=== PATIENT | female | born 1960 | race Caucasian/White ===

== ENCOUNTER → 2020-12-04 13:41 | Outpatient (CLI) | payer OTHER, SELFPAY ==
--- NOTE | ~2020-12-04 | MM_ITS ---
EXAMINATION: MM screening sara BI w raj HISTORY: Screening mammogram TECHNIQUE: Craniocaudal and mediolateral oblique 3-D tomosynthesis images were obtained and synthetic 2-D images were generated. CAD analysis was submitted and interpreted. COMPARISON: 11/16/2019, 10/20/2017, 09/21/2016 bilateral digital screening mammogram examinations BREAST PARENCHYMAL COMPOSITION: There are scattered areas of fibroglandular density. FINDINGS: Scattered bilateral benign calcifications. There is no evidence of suspicious mass, calcifi cation, or architectural distortion to suggest malignancy in either breast. There has been no suspici ous interval change. IMPRESSION: 1. No mammographic evidence of malignancy. 2. Recommend routine screening mammography in one year. BI-RADS Category 1: Negative Reviewed, dictated and finalized at location A. [place] SHELLER
== END ==
PROVIDERS: Visit Provider Obstetrics & Gynecology Gynecology
DX: Z12.31 Encounter for screening mammogram for malignant neoplasm of breast (principal)
CPT/HCPCS: 77063; 77067

== ENCOUNTER → 2021-12-27 07:51 | Outpatient (CLI) | payer OTHER, SELFPAY ==
--- NOTE | ~2021-12-27 | DEXA_ITS ---
Bone Density Report Name: NIKO MINA Age: 61 Sex: Female Ethnicity: White Date of : 1960 Indication: osteopenia; monitoring treatment; parental hip fracture; hysterectomy; postmenopausal Referring Provider: VILMA VICTORIA Study: Bone densitometry was performed. Exam Date: December 27, 2021 Accession number: [id number] Bone Density: Region BMD T-score Z-score Classification AP Spine (L1-L4) 0.823 -2.0 -0.6 Osteopenia Femoral Neck (Left) 0.756 -0.8 0.4 Normal Total Hip (Left) 0.812 -1.1 -0.1 Osteopenia Femoral Neck (Right) 0.769 -0.7 0.6 Normal Total Hip (Right) 0.840 -0.8 0.1 Normal Total Hip Mean 0.826 -1.0 0.0 Normal World Health Organization criteria for BMD impression classify patients as: Normal (T-score at or above -1.0), Osteopenia (T-score between -1.0 and -2.5), or Osteoporosis (T-score at or below -2.5). 10-year Fracture Risk: FRAX not reported because: Treated for osteoporosis Previous Exams: Region Exam Age BMD T-score BMD Change BMD Change Date g/cm2 vs Baseline vs Previous AP Spine(L1-L4) 12/27/2021 61 0.823 -2.0 -0.013 0.021 11/16/2019 59 0.802 -2.2 -0.034* -0.047* 10/20/2017 57 0.849 -1.8 0.013 0.013 09/19/2015 55 0.836 -1.9 Total Hip(Left) 12/27/2021 61 0.812 -1.1 0.030* 0.031* 11/16/2019 59 0.781 -1.3 -0.001 -0.034* 10/20/2017 57 0.815 -1.0 0.033* 0.033* 09/19/2015 55 0.782 -1.3 Total Hip(Right) 12/27/2021 61 0.840 -0.8 0.023 0.039* 11/16/2019 59 0.801 -1.2 -0.017 -0.027 10/20/2017 57 0.828 -0.9 0.010 0.010 09/19/2015 55 0.818 -1.0 *Denotes significance at 95% confidence level, LSC for AP Spine = 0.022 g/cm2, LSC for Total Hip = 0.027 g/cm2 Clinical Information Provided by Patient: Parent has had a hip fracture Is being treated for osteoporosis Has used the following medications: Boniva (i.e. ibandronate), Vitamin D Has the following medical conditions: Hysterectomy, thyroid med, unsure condition Patient maximum height was 60 Menopause Age: 46 Drinks caffeinated beverages Onset of menses at age 13 Number of children 2 Impression: The patient has low bone mass, based on the Total Spine T-score. The patient has risk factors, including: parental hip fracture. No significant bone loss was
--- NOTE | ~2021-12-27 | MM_ITS ---
EXAMINATION: MM screening sara BI w raj HISTORY: Screening mammogram TECHNIQUE: Craniocaudal and mediolateral oblique 3-D tomosynthesis images were obtained and synthetic 2-D images were generated. CAD analysis was submitted and interpreted. COMPARISON: 12/04/2020, 11/16/2019 BREAST PARENCHYMAL COMPOSITION: The breasts are heterogeneously dense, which may obscure small masses . FINDINGS: Scattered benign-appearing calcifications are present. There is no evidence of suspicious m ass, calcification, or architectural distortion to suggest malignancy in either breast. There has bee n no suspicious interval change. IMPRESSION: 1. No mammographic evidence of malignancy. 2. Recommend routine screening mammography in one year. BI-RADS Category 2: Benign finding(s). Reviewed, dictated and finalized at location A. ETICIST
== END ==
PROVIDERS: PCP Obstetrics & Gynecology Gynecology; Visit Provider Obstetrics & Gynecology Gynecology
DX: Z12.31 Encounter for screening mammogram for malignant neoplasm of breast (principal); Z78.0 Asymptomatic menopausal state; M85.88 Other specified disorders of bone density and structure, other site; M85.852 Other specified disorders of bone density and structure, left thigh
CPT/HCPCS: 77063; 77067; 77080

== ENCOUNTER → 2023-05-31 13:51 | Outpatient (CLI) | payer OTHER, SELFPAY ==
--- NOTE | ~2023-05-31 | XR_ITS ---
EXAM: XR sinus min 3V DATE: 05/31/2023 14:07 HISTORY: R51.9 - Headache, unspecified . COMPARISON: None available. FINDINGS: Normal mineralization. No fracture or dislocation. No lytic or blastic lesion. No abnormal intracranial calcification. Symmetric orbits. Aerated spaces are clear. Mild leftward bowing of the inferior osseous nasal septum. Multiple dental restorations. No erosion or periosteal change. Soft ti ssues within normal limits. IMPRESSION: Normal sinus radiograph findings. Reviewed, dictated and finalized at location K.
== END ==
PROVIDERS: PCP Nurse Practitioner Family; Visit Provider Nurse Practitioner Family
DX: R40.0 Somnolence (principal); R51.9 Headache, unspecified; G89.29 Other chronic pain
CPT/HCPCS: 70220

== ENCOUNTER 2023-06-18 08:49 | Emergency (ER) | payer OTHER, SELFPAY ==
--- NOTE | 2023-06-18 09:01 | ED.GENADULT ---
HPI - General Adult General Chief complaint: Skin/Abscess/Foreign Body Stated complaint: rash around eyes Time Seen by Provider: 06/18/23 09:03 Source: patient, RN notes reviewed and old records reviewed Mode of arrival: ambulatory Limitations: no limitations History of Present Illness HPI narrative: 63-year-old female presents to the [facility] with a rash to the outer aspects of both eyes. Patient reports the right eye it has been there for approximately 4 weeks. Left eye states it has just developed. Denies any new creams ointments lotions or detergents. Has seen her eye doctor as well as her primary care provider with no diagnosis. Related Data Home Medications Medication Instructions Recorded Confirmed ibandronate 150 mg tablet (Boniva) 150 mg PO MONTHLY 07/25/20 06/18/23 levothyroxine 75 mcg tablet 88 mcg PO DAILY 11/03/21 06/18/23 (Synthroid) meloxicam 7.5 mg tablet 7.5 mg PO DAILY 11/03/21 06/18/23 sertraline 50 mg tablet (Zoloft) 50 mg PO DAILY 05/11/22 06/18/23 biotin 2,500 mcg capsule 2,500 mcg PO DAILY 05/31/23 06/18/23 fluticasone propionate 50 2 spray intranasal DAILY 05/31/23 06/18/23 mcg/actuation nasal spray,suspension multivitamin 1 tablet PO DAILY 05/31/23 06/18/23 Allergies Allergy/AdvReac Type Severity Reaction Status Date / Time No Known Allergies Allergy Verified 06/18/23 09:12 Review of Systems Review of Systems: All systems reviewed & are unremarkable except as noted in HPI and below Constitutional: Constitutional: Reports no additional constitutional complaints Eyes: Eyes: Reports no additional eye complaints ENT: Reports system reviewed and no additional complaints, except as documented Cardiovascular: Cardiovascular: Reports no additional cardiovascular complaints, Denies chest pain and Denies dyspnea Respiratory: Respiratory: Reports no additional respiratory complaints, Denies chest congestion, Denies cough and Denies dyspnea Gastrointestinal: Gastrointestinal: Reports no additional gastrointestinal complaints, Denies abdominal pain, Denies nausea and Denies vomiting Musculoskeletal: Musculoskeletal: Reports no additional musculoskeletal complaints Integumentary/Breasts: Skin/Breast: Reports as per HPI Neurologic: Reports system reviewed and no additional complaints, except as documented Psychiatric: Psychiatric: Reports no additional psychiatric complaints Allergic/Immunologic: Allergic/Immunologic: Reports no additional allergic/immunologic complaints [facility] Past Medical History Medical History Cutaneous abscess of buttock (~2019) Generalized anxiety disorder Hypothyroidism (acquired) Incomplete tear of right rotator cuff Osteopenia of spine Screening cholesterol level Shingles (~09/2021) Vitamin B12 deficiency Surgical History Surgical History History of carpal tunnel surgery of right wrist (~01/13/22) Hx of hysterectomy (~2005) Family History Family History Mother Family history of thyroid disease Family history of osteoporosis Father Diabetes mellitus Hypertension Cerebrovascular accident Grandparent Acute myocardial infarction Family history of dementia Social History Social History Smoking status: Never smoker Alcohol intake: never Substance use: never Substance use type: does not use Lack of Transportation: No Lack of Food: Never True Current Housing: I Have Housing Concerned About Future Housing: No Difficulty Paying Gas/Electric Bills: No Difficulty Paying for Meds: No Currently Unemployed: No Education: High School Diploma/GED Difficulty w/ Childcare or Family Care: No Living arrangements: with family Occupation/Education: occupation Comments At the time of my signature, I reviewed
[2023-06-18 09:04] VITALS: BP 145/88; PULSE 84; RESP 16; TEMP 36.4; O2SAT 99
== END 2023-06-18 09:17 | disposition home or self-care (01) ==
PROVIDERS: Emergency Provider Nurse Practitioner; PCP Nurse Practitioner Family
DX: L30.9 Dermatitis, unspecified (principal); E03.9 Hypothyroidism, unspecified; M85.88 Other specified disorders of bone density and structure, other site; F41.1 Generalized anxiety disorder; E53.8 Deficiency of other specified B group vitamins
CPT/HCPCS: 99211; G0463

== ENCOUNTER 2023-07-16 08:03 | Outpatient (CLI) | payer OTHER, SELFPAY ==
--- NOTE | 2023-08-02 10:39 | WPDHOMESLEEP ---
Sleep Study - Home Unattended Date of Study: 07/16/23 Ordering Provider: Laury Wilkinson APRN Interpreting Provider: Paola Morse MD Home Sleep Study Type: Watch PAT Height: 1.5 m Weight: 53.524 kg Body Mass Index: 23.8 Neck Circumference (inches): 13 [place]: 7 Reason for Sleep Study Hypersomnia Sleep History Natasha Uribe is a 63-year-old woman with constant fatigue after waking up even after 8-10 hours of sleep. She snores loudly, she has a dry mouth in the morning and headaches. She has a difficult time falling asleep and staying asleep. She wakes in the milieu technician hours. She has seen her dentist about these problems. She rarely awakens from sleep short of breath. She occasionally wakes at night with heartburn, belching or coughing.??She sleeps alone, has heard herself snoring. She constantly has trouble sleeping when she has a cold. She rarely wakes up gasping for breath during the night. She never has breathing problems at night. She rarely sweats excessively at night. She never notices her heart pounding or beating irregularly during the night. She rarely falls asleep during the day. She never falls asleep involuntarily, and never falls asleep while driving. She never experiences loss of muscle tone with strong emotion. She never feels paralyzed on waking or falling asleep. She rarely experiences vivid dreams upon waking or falling asleep. She never feels afraid of going to sleep. She rarely has nightmares. She rarely recalls her dreams. She occasionally has thoughts racing through her mind. She occasionally feels sad or depressed. She occasionally feels anxiety. She rarely notices parts of her body jerk. She rarely kicks during the night. She never feels crawling or aching feelings in her legs. She rarely feels leg pain at night. She rarely has morning jaw pain. Her dentitst tells her that she has evidence of grinding her teeth during sleep. She rarely feels bothered by pain during the day, rarely awakened by pain during the night. She occasionally wakes up feeling stiff in the morning, occasionally wakes feeling sore or achy in the morning. She frequently awakens with pain in her neck, spine, or joints. Normal bedtime is 9:00 a.m., falling asleep within 10 minutes. She reports getting 8 hours of sleep per night. Her wake time is 6:00 a.m. She keeps the same schedule on weekends. she generally does not wake up much at night, usually less than once per week. Once she wakes up at night, it is usually difficult for her to return to sleep so she stays awake. She does not take naps in the afternoon or evening. She sometimes does stretching exercises before bedtime. She is usually drowsy for 2 hours after waking. She feels better in the morning compared to other times of day. Habits:??Tobacco: never Caffeine: 3 servings per day. Alcohol: none Recreational substances: none PMFSH Past Medical History Medical History Cutaneous abscess of buttock (~2019) Generalized anxiety disorder Hypothyroidism (acquired) Incomplete tear of right rotator cuff Osteopenia of spine Screening cholesterol level Shingles (~09/2021) Vitamin B12 deficiency Surgical History Surgical History History of carpal tunnel surgery of right wrist (~01/13/22) Hx of hysterectomy (~2005) Family History Family History Mother Family history of thyroid disease Family history of osteoporosis Father Diabetes mellitus Hypertension Cerebrovascular accident Grandparent Acute myocardial infarction Family history of dementia Social History Social History Smoking status: Never smoker Alcohol intake: never Substance use: never Substance use type: does not use Lack of Transportation: No Lack of Fo
[2023-08-02 11:39] VITALS: BMI 23.8
== END 2023-07-20 09:38 | disposition home or self-care (01) ==
PROVIDERS: PCP Nurse Practitioner Family; Visit Provider Nurse Practitioner Family
DX: R40.0 Somnolence (principal); R06.83 Snoring
CPT/HCPCS: 95800

== ENCOUNTER 2024-05-03 11:33 | Outpatient (CLI) | payer OTHER, SELFPAY ==
--- NOTE | ~2024-05-03 | DEXA_ITS ---
? Bone Density Report? Name:? NIKO MINA A Patient ID:??? [id number] Age:? 64 Sex:? Female Ethnicity:? White Date of : 1960 Indication: hyperparathyroidism; parental hip fracture; height loss; hysterectomy; Referring Provider: Tracie Atkinson Study: Bone densitometry was performed. Exam Date: May 03, 2024 Accession number: [id number] Bone Density: Region? BMD??? T-score ?Z-score?? Classification AP Spine(L1-L4)? 0.842?? -1.9? -0.3? Osteopenia Femoral Neck (Left)? 0.768?? -0.7? 0.7? Normal Total Hip (Left)? 0.809?? -1.1?0.0? Osteopenia Femoral Neck (Right)? 0.751?? -0.9? 0.5? Normal Total Hip (Right)? 0.853?? -0.7? 0.3? Normal Femoral Neck Mean? 0.759?? -0.8? 0.6? Normal Total Hip Mean? 0.831?? -0.9? 0.2?Normal World Health Organization criteria for BMD impression classify patients as: Normal (T-score at or above -1.0), Osteopenia (T-score between -1.0 and -2.5), or Osteoporosis (T-score at or below -2.5). 10-year Fracture Risk(1): Major Osteoporotic Fracture? 15% Hip Fracture? 0.4% Reported Risk Factors: [place] (), Neck BMD=0.751, BMI=25.2, parental fracture (1) FRAX? Version 3.08. Fracture probability calculated for an untreated patient. Fracture probability may be lower if the patient has received treatment. Clinical Information Provided by Patient: Parent has had a hip fracture Has the following medical conditions: Hyperparathyroidism, Hysterectomy Patient maximum height was 60 Menopause Age: 47 Drinks caffeinated beverages Onset of menses at age 14 Number of children 2 Impression: The patient has low bone mass, based on the Total Spine T-score. The patient has risk factors, including: parental hip fracture. Discussion: BONE DENSITY IS LOW AT ONE OR MORE SKELETAL SITES. This patient's lowest T-score is low at one or more skeletal sites.? It meets the World Health Organization's (WHO) criteria for ?low bone mass?? (T-score between -1.0 and -2.5).? The patient's 10-year risk of fracture as calculated by FRAX is less than the threshold where pharmacological therapy is recommended by the National Osteoporosis Foundation (NOF).? However, all treatment decisions require clinical judgment and consideration of individual patient factors, including patient preferences, comorbidities, previous drug use, risk factors not captured in the FRAX model (e.g., frailty, falls, vitamin D deficiency, increased bone turnover, interval significant decline in bone density) and possible under or overestimation of fracture risk by FRAX. The patient should follow a healthful lifestyle (good nutrition
--- NOTE | ~2024-05-03 | MM_ITS ---
EXAMINATION: MM screening [facility] BI w raj HISTORY: Screening mammogram TECHNIQUE: Craniocaudal and mediolateral oblique 3-D tomosynthesis images were obtained and synthetic 2-D images were generated. CAD analysis was submitted and interpreted. COMPARISON: 12/27/2021, 12/04/2020, 11/16/2019 BREAST PARENCHYMAL COMPOSITION:Not Dense. There are scattered areas of fibroglandular density. FINDINGS: No suspicious mass, calcification, or architectural distortion are identified in either siri ast to suggest malignancy. There has been no suspicious interval change. IMPRESSION: No mammographic evidence of malignancy. Recommend routine screening mammography in one year. BI-RADS Category 1: Negative Reviewed, dictated and finalized at location .
== END 2024-05-03 11:34 | disposition home or self-care (01) ==
LOC: CHSIMG 11:35
PROVIDERS: PCP Obstetrics & Gynecology Gynecology; Visit Provider Obstetrics & Gynecology Gynecology
DX: Z12.31 Encounter for screening mammogram for malignant neoplasm of breast (principal); Z78.0 Asymptomatic menopausal state; M85.88 Other specified disorders of bone density and structure, other site
CPT/HCPCS: 77063; 77067; 77080

== ENCOUNTER 2024-05-10 01:27 | Day surgery (SDC) | payer OTHER, SELFPAY ==
[2024-04-27 10:16] VITALS: BMI 25.3
[2024-05-10 11:41] VITALS: BP 123/65; PULSE 102; RESP 18; TEMP 36.3; O2SAT 100; BMI 23.9
[2024-05-10] MEDS: LACTATED RINGERS 1,000 ML 150 ML IV CONT (11:49)
--- NOTE | 2024-05-10 11:53 | WPDANESEPPF ---
Anes - Initial Pre Proc Eval Procedure: Operation Date: 05/10/24 13:00 Proposed Procedures p Colonoscopy - Jasvir Robert MD Date/Time: 05/10/24 11:53 Surgeon: Jasvir Robert MD Pre Op Diagnosis: Other fecal abnormalities Patient Data Age: 64 Gender: F Height: 1.5 m Weight: 53.8 kg Last Vital Signs Temp 97.3 F L 05/10/24 11:41 Pulse 102 H 05/10/24 11:41 Resp 18 05/10/24 11:41 BP 123/65 05/10/24 11:41 Pulse Ox 100 05/10/24 11:41 O2 Del Method Room Air 05/10/24 11:41 Allergies Allergy/AdvReac Type Severity Reaction Status Date / Time No Known Allergies Allergy Verified 05/10/24 11:38 Home Medications Medication Instructions Recorded Confirmed Type ibandronate 150 mg tablet (Boniva) 150 mg PO MONTHLY 07/25/20 05/10/24 History levothyroxine 75 mcg tablet 88 mcg PO DAILY 11/03/21 05/10/24 History (Synthroid) meloxicam 7.5 mg tablet 7.5 mg PO DAILY 11/03/21 05/10/24 History sertraline 50 mg tablet (Zoloft) 50 mg PO DAILY 05/11/22 05/10/24 History fluticasone propionate 50 2 spray intranasal DAILY 05/31/23 05/10/24 History mcg/actuation nasal spray,suspension multivitamin 1 tablet PO DAILY 05/31/23 05/10/24 History zolpidem 10 mg tablet (Ambien) 10 mg PO QHS PRN sleep #2 tabs 05/05/24 05/10/24 Rx Patient hx anesthesia problems: none Family hx anesthesia problems: none Results Review: All pre-operative results and documents have been reviewed as part of the pre-operative evaluation. [facility] Past Medical History Medical History Cutaneous abscess of buttock (~2019) Generalized anxiety disorder Hypothyroidism (acquired) Incomplete tear of right rotator cuff Osteopenia of spine Screening cholesterol level Shingles (~09/2021) Vitamin B12 deficiency Surgical History Surgical History History of carpal tunnel surgery of right wrist (~01/13/22) Hx of hysterectomy (~2005) Family History Family History Mother Family history of thyroid disease Family history of osteoporosis Father Diabetes mellitus Hypertension Cerebrovascular accident Grandparent Acute myocardial infarction Family history of dementia Social History Social History Smoking status: Never smoker Alcohol intake: never Substance use: never Substance use type: does not use Lack of Transportation: No Lack of Food: Never True Current Housing: I Have Housing Concerned About Future Housing: No Difficulty Paying Gas/Electric Bills: No Difficulty Paying for Meds: No Currently Unemployed: No Education: High School Diploma/GED Difficulty w/ Childcare or Family Care: No Living arrangements: with family Occupation/Education: occupation Spiritual care concerns: No Anes - Eval Final PreProcedure Day of Procedure 05/10/24 11:53 Patient weight: normal Heart: regular rate and rhythm Lungs: clear to auscultation Airway: Mallampati scale class II Neurological: alert and oriented Last oral intake: >/= 8 hours ASA classification: II Emergent: no Anesthetic plan: proceed Anesthesia type and monitoring: general GIVS and standard monitoring Results Review: All pre-operative results and documents have been reviewed as part of the pre-operative evaluation. Informed Consent: The patient's anesthetic plan and its attendant risks and benefits were discussed with the patient/family/POA. Questions were solicited and answers provided to the satisfaction of the patient/family/POA.
--- NOTE | 2024-05-10 13:15 | PM.HPGS ---
History of Present Illness History of Present Illness Consent: Risks, benefits, and alternatives have been discussed and questions answered. Patient agrees to proceed with procedure. Chief complaint: Other fecal abnormalities Narrative: Natasha Uribe is a 64 year old female with + cologuard, last colonoscopy 12 years ago Review of Systems Review of Systems: All systems reviewed & are unremarkable except as noted in HPI and below PMFSH Past Medical History Medical History (Updated 05/10/24 @ 13:16 by Jasvir Robert MD) Cutaneous abscess of buttock (~2019) Generalized anxiety disorder Hypothyroidism (acquired) Incomplete tear of right rotator cuff Osteopenia of spine Positive colorectal cancer screening using Cologuard test Screening cholesterol level Shingles (~09/2021) Vitamin B12 deficiency Surgical History Surgical History History of carpal tunnel surgery of right wrist (~01/13/22) Hx of hysterectomy (~2005) Family History Family History Mother Family history of thyroid disease Family history of osteoporosis Father Diabetes mellitus Hypertension Cerebrovascular accident Grandparent Acute myocardial infarction Family history of dementia Social History Social History Smoking status: Never smoker Alcohol intake: never Substance use: never Substance use type: does not use Lack of Transportation: No Lack of Food: Never True Current Housing: I Have Housing Concerned About Future Housing: No Difficulty Paying Gas/Electric Bills: No Difficulty Paying for Meds: No Currently Unemployed: No Education: High School Diploma/GED Difficulty w/ Childcare or Family Care: No Living arrangements: with family Occupation/Education: occupation Spiritual care concerns: No Meds Home Medications and Allergies Home Medications Medication Instructions Recorded Confirmed Type ibandronate 150 mg tablet (Boniva) 150 mg PO MONTHLY 07/25/20 05/10/24 History levothyroxine 75 mcg tablet 88 mcg PO DAILY 11/03/21 05/10/24 History (Synthroid) meloxicam 7.5 mg tablet 7.5 mg PO DAILY 11/03/21 05/10/24 History sertraline 50 mg tablet (Zoloft) 50 mg PO DAILY 05/11/22 05/10/24 History fluticasone propionate 50 2 spray intranasal DAILY 05/31/23 05/10/24 History mcg/actuation nasal spray,suspension multivitamin 1 tablet PO DAILY 05/31/23 05/10/24 History zolpidem 10 mg tablet (Ambien) 10 mg PO QHS PRN sleep #2 tabs 05/05/24 05/10/24 Rx Allergies Allergy/AdvReac Type Severity Reaction Status Date / Time No Known Allergies Allergy Verified 05/10/24 11:38 Vital Signs Vital Signs - 24 hr 05/10/24 11:41 Temperature 97.3 F L Pulse Rate 102 H Respiratory Rate 18 Blood Pressure 123/65 Pulse Oximetry 100 Oxygen Delivery Room Air Exam Const: General: comfortable and no acute distress HENMT: Face/Nose/Sinus: Normal nares present Eyes: General: appearance normal, both eyes and all related structures Neck: Neck: no JVD Resp: Auscultation: clear to auscultation bilaterally Cardio: Rate: regular rate Rhythm: regular rhythm GI: Inspection: non-distended GI Palp: Yes Soft to palpation Skin: General skin exam: normal color Neuro: General: gait normal Speech: normal speech Extrem: General: normal to inspection Psych: Mental Status: mental status grossly normal Assessment and Plan Assessment and plan (1) Positive colorectal cancer screening using Cologuard test: Code(s): R19.5 - Other fecal abnormalities Status: Acute Assessment and Plan: colonoscopy
[2024-05-10 13:39] VITALS: BP 93/51; PULSE 88; RESP 19; O2SAT 99
[2024-05-10 13:49] VITALS: BP 109/64; PULSE 90; RESP 18; O2SAT 99
[2024-05-10 13:59] VITALS: BP 104/61; PULSE 79; RESP 19; O2SAT 100
== END 2024-05-10 14:07 | disposition home or self-care (01) ==
PROVIDERS: PCP Family Medicine; Visit Provider Internal Medicine Gastroenterology
PROC: 0DJD8ZZ Inspection of Lower Intestinal Tract, Via Natural or Artificial Opening Endoscopic (ICD-10-PCS; CPT 45378; principal; 2024-05-10 13:00)
DX: K63.5 Polyp of colon (principal); K57.30 Diverticulosis of large intestine without perforation or abscess without bleeding; K64.8 Other hemorrhoids; E03.9 Hypothyroidism, unspecified; F41.1 Generalized anxiety disorder
CPT/HCPCS: 45380; 88305; J2704; J7120

== ENCOUNTER 2024-05-11 08:58 | Outpatient (CLI) | payer OTHER, SELFPAY ==
--- NOTE | 2024-05-23 17:36 | WPDSLEEPSTUD ---
Sleep Study Date of Study: 05/11/24 Ordering Provider: TOBIAS Mckeon Interpreting Physician: Paola Morse MD Sleep Study Type: Polysomnogram Height: 1.5 m Weight: 54.431 kg Body Mass Index: 24.2 Neck Circumference (inches): 13 Calvin: 7 Reason for Sleep Study Constant fatigue, loud snoring, morning headache * 07/16/2023 Home sleep test with WatchPat showing apnea-hypopnea index 0.3, no central apneas, lowest saturation 91%, mild to moderate snoring Sleep History This sleep history is obtained from her July 16, 2023. Sleep study. She did not complete a new sleep questionnaire. She returns for additional testing because she remains excessively sleepy during the day and snores loudly. Natasha Uribe is a 64-year-old woman with constant fatigue after waking up even after 8-10 hours of sleep. She snores loudly, she has a dry mouth in the morning and headaches. She has a difficult time falling asleep and staying asleep. 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 She has seen her dentist about these problems. She rarely awakens from sleep short of breath. She occasionally wakes at night with heartburn, belching or coughing.??She sleeps alone, has heard herself snoring. She constantly has trouble sleeping when she has a cold. She rarely wakes up gasping for breath during the night. She never has breathing problems at night. She rarely sweats excessively at night. She never notices her heart pounding or beating irregularly during the night. She rarely falls asleep during the day. She never falls asleep involuntarily, and never falls asleep while driving. She never experiences loss of muscle tone with strong emotion. She never feels paralyzed on waking or falling asleep. She rarely experiences vivid dreams upon waking or falling asleep. She never feels afraid of going to sleep. She rarely has nightmares. She rarely recalls her dreams. She occasionally has thoughts racing through her mind. She occasionally feels sad or depressed. She occasionally feels anxiety. She rarely notices parts of her body jerk. She rarely kicks during the night. She never feels crawling or aching feelings in her legs. She rarely feels leg pain at night. She rarely has morning jaw pain. Her dentist told her that she has evidence of grinding her teeth during sleep. She rarely feels bothered by pain during the day, rarely awakened by pain during the night. She occasionally wakes up feeling stiff in the morning, occasionally wakes feeling sore or achy in the morning. She frequently awakens with pain in her neck, spine, or joints. Normal bedtime is 9:00 a.m., falling asleep within 10 minutes. She reports getting 8 hours of sleep per night. Her wake time is 6:00 a.m. She keeps the same schedule on weekends. she generally does not wake up much at night, usually less than once per week. Once she wakes up at night, it is usually difficult for her to return to sleep so she stays awake. She does not take naps in the afternoon or evening. She sometimes does stretching exercises before bedtime. She is usually drowsy for 2 hours after waking. She feels better in the morning compared to other times of day. Habits:??Tobacco: never Caffeine: 3 servings per day. Alcohol: none Recreational substances: none PMFSH Past Medical History Medical History Cutaneous abscess of buttock (~2019) Generalized anxiety disorder Hypothyroidism (acquired) Incomplete tear of right rotator cuff Osteopenia of spine Positive colorectal cancer screening using Cologuard test Screening cholesterol level Shingles (~09/2021) Vitamin B12 deficiency Surgical History Surgical History History of carpal tunnel surgery of right wrist (~01/13/22) Hx of hysterectomy (~2005) Family History Family History Mother
[2024-05-23 17:57] VITALS: BMI 24.2
== END 2024-05-12 06:23 | disposition home or self-care (01) ==
LOC: ANHCSM 08:59
PROVIDERS: PCP Family Medicine; Visit Provider Nurse Practitioner
DX: R40.0 Somnolence (principal); G47.61 Periodic limb movement disorder
CPT/HCPCS: 95810

== ENCOUNTER 2025-05-24 11:25 | Outpatient (CLI) | payer OTHER, SELFPAY ==
--- NOTE | ~2025-05-24 | MM_ITS ---
EXAMINATION: MM screening [facility] w raj HISTORY: Screening TECHNIQUE: Craniocaudal and mediolateral oblique 3-D tomosynthesis images were obtained and synthetic 2-D images were generated. CAD analysis was submitted and interpreted. COMPARISON: Comparison to multiple prior studies sequentially, with oldest reviewed study dated 09/02. BREAST PARENCHYMAL COMPOSITION: There are scattered areas of fibroglandular density. FINDINGS: There is no evidence of suspicious mass, calcification, or architectural distortion to sug gest malignancy in either breast. Scattered benign-appearing calcifications are present. IMPRESSION: 1. No mammographic evidence of malignancy. 2. Recommend routine screening mammography in one year. BI-RADS Category 2: Benign finding(s). Reviewed, dictated and finalized at location B.
== END 2025-05-24 11:26 | disposition home or self-care (01) ==
LOC: MICIMG 11:26
PROVIDERS: PCP Nurse Practitioner Family; Visit Provider Obstetrics & Gynecology Gynecology
DX: Z12.31 Encounter for screening mammogram for malignant neoplasm of breast (principal)
CPT/HCPCS: 77063; 77067

== ENCOUNTER 2025-10-29 12:47 | Outpatient (CLI) | payer OTHER, SELFPAY ==
--- OUTSIDE RECORDS SUMMARY | 2025-10-29 12:56 | XMS_ITS | Encounter Summary ---
Author Organization [facility] Address [address] [address] Care Team Providers Care Senior Construction Estimator Name Role Phone Maurice Perez MD Primary Care Provider [phone] No, Physician Primary Care Provider [phone] Whit Reagan NP Primary Care Provider [phone] Encounter Details Date Type Department Care Team (Late st Contact Info) Description 11/09/2016 Orders Only [facility] ProviderMabel MD [address] [place] [address] Social History Tobacco Use Types Packs/Day Years Used Date Smoking Tobacco: Never Alcohol Use Standard Drinks/Week Comments No 0 (1 standard drink = 0.6 oz pur e alcohol) Comments Unknown Sex and Gender Information Value Date Recorded Sex Assigned at Not on file 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 Historical Provider [facility] ZAHRA MEJIA Final Result documented in this encounter Visit Diagnoses Not on filedocumented in this encounter Care Teams Senior Construction Estimator Relationship Specialty Start Date End Date Maurice Perez MD PCP - General 11/04/16 10/19/19 No, Physician PCP - General 10/20/19 11/05/21 Whit Reagan NP PCP - General Family Medicine 11/06/21 documented as of this encounter
--- OUTSIDE RECORDS SUMMARY | 2025-10-29 12:56 | XMS_ITS | Clinical Summary ---
Author Organization [facility] Address [address] [place] [address] Care Team Providers Care Doctor Of Naturopathic Medicine Name Role Phone Unavailable Primary Care Provider Unavailabl e Source Comments [facility] [email or web address],non-owned Affiliates and Associated Physician Practices is amultiple site organization consisting of ambulatory clinics and hospital sitesin [place], [place], [place] and [place]. This disclosure is being madepursuant to the Care Everywhere program and may not contain all information available regarding this patient. Last updated 18.[email or web address] Allergies No known active allergies Medications * Be aware that medications may not be up to date on this document. Alwaysverify current medications with the patient. vitamin D, ergocalciferol, (DRISDOL) 93022 UNITS capsule take 1 capsule by oral route every other week 7 Active alendronate (FOSAMAX) 35 MG tablet 35 mg 7 Active docusate sodium (COLACE) 100 MG capsule 100 mg 7 Active naproxen (NAPROSYN) 500 MG tablet 500 mg 7 Active sertraline (ZOLOFT) 50 MG tablet 50 mg 7 Active pantoprazole EC (PROTONIX) 40 MG tablet Take 40 mg by mouth once daily Active omeprazole (PRILOSEC) 20 MG capsule Take 20 mg by mouth daily before breakfast Active cetirizine (ZYRTEC) 10 MG tablet Take 10 mg by mouth once daily Active levothyroxine (SYNTHROID) 50 MCG tablet Take 50 mcg by mouth daily before breakfast Active Family History Medical History Relation Name Comments CVA Father Diabetes - Type 2 Father Hypertension Father Thyroid Disease Mother Relation Name Status Comments Father Mother Social History Tobacco Use Types Packs/Day Years Used Date Smoking Tobacco: Never Smokeless Tobacco: Never Alcohol Use Standard Drinks/Week Comments No 0 (1 standard drink = 0.6 oz pur e alcohol) Comments Unknown Sex and Gender Information Value Date Recorded Sex Assigned at Not on file Legal Sex Female 3:45 PM CDT Gender Identity Not on file Sexual Orientation Not on file Last Filed Vital Signs Vital Sign Reading Time Taken Comments Blood Pressure - - Pulse - - Temperature - - Respiratory Rate - - Oxygen Saturation - - Inhaled Oxygen Concentration - - Weight 54.4 kg (120 lb) 04/11/2018 9:57 AM CDT Height 152.4 cm (5') 04/11/2018 9:57 AM CDT Body Mass Index 23.44 04/11/2018 9:57 AM CDT Plan of Treatment Health Maintenance Due Date Last Done Comments COLOGUARD (AGES 45-75) - COL ON CA SCREENING 1962 COLON MONITORING 1962 COLONOSCOPY - COLON CA SCREENING 1962 CT COLONOGRAPHY - COLON CA SCREENING 1962 Colorectal Cancer Screening 1962 FIT - COLON CA SCREENING 1962 FLEX SIG - COLON CA SCREENING 1962 LIPID TESTING 1962 MAMMOGRAM 1962 HIV SCREENING 1977 HEPATITIS C SCREENING 01/10/1980 DTAP/TDAP/TD VACCINES (1 - Tdap) 1981 PNEUMOCOCCAL VACCINE 50+ (1 of 1 - PCV) 01/15/2012 ZOSTER VACCINE (1 of 2) 01/15/2012 DEPRESSION SCREENING 11/01/2024 COVID-19 VACCINE (1 - 2024-2 6 season) 2025 INFLUENZA VACCINE (#1) 2025 Respiratory Syncytial Virus (RSV) Vaccine Pt: or over 60 yrs (1 - 1-dose 75+ series) 2037 HEPATITIS B VACCINE Aged Out No longe r eligible based on patient's age to complete this topic HIB VACCINE Aged Out No longer eligi ble based on patient's age to complete this topic HPV VACCINE Aged Out No longer eligi ble based on patient's age to complete this topic MENINGOCOCCAL (Group B) VACC INE SHARED DECISION-MAKING Aged Out No longer eligibl e based on patient's age to complete this topic MENINGOCOCCAL GROUPS A/C/Y/W VACCINE Aged Out No longer eligible b ased on patient's age to complete this topic Insurance [address] [place] [address] [address] [place] [address] * Guarantor: NATASHA URIBE Account Type Relation to Patient Date of Phone Billing Address Personal/Family [address] [place] [address] SELF PAY NO INSURANCE Member Subscriber Plan / Payer (Ef fective for All Dates) Name:Natasha Uribe Member ID:Not on file Relation to Subscriber:Not on file Name:NATASHA URIBE Subscriber ID:Not on file Address: [address] [place] [address] Payer ID:Not on file Group ID:Not on file Type:Self Pay Address: [place], [place] * Guarantor: NATASHA URIBE Account Type Relation to Patient Date of Phone Billing Address Personal/Family [address] [place] [address] SELF PAY NO INSURANCE Member Subscriber Plan / Payer (Ef fective for All Dates) Name:Natasha Uribe Member ID:Not on file Relation to Subscriber:Not on file Name:NATASHA URIBE Subscriber ID:Not on file Address: [address] [place] [address] Payer ID:Not on file Group ID:Not on file Type:Self Pay Address: [place], [place] * Guarantor: NATASHA URIEB Account Type Relation to Patient Date of Phone Billing Address Personal/Family [address] [place] [address] SELF PAY NO INSURANCE Member Subscriber Plan / Payer (Ef fective for All Dates) Name:Natasha Uribe Member ID:Not on file Relation to Subscriber:Not on file Name:NATASHA URIBE Subscriber ID:Not on file Address: [address] [place] [address] Payer ID:Not on file Group ID:Not on file Type:Self Pay Address: [place], [place]
--- OUTSIDE RECORDS SUMMARY | 2025-10-29 12:56 | XMS_ITS | Clinical Summary ---
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 HOSPITALIST Gender Identity Not on file Sexual Orientation Not on file Plan of Treatment Health Maintenance Due Date Last Done Comments Cervical Cancer Screening Pa p Smear (Age 30 to 64) Every 3 Years 1962 Colorectal Cancer Screening Colonoscopy (10 Years) 1962 Annual Physical 1965 Hepatitis C 01/15/1980 DTaP, Tdap and Td Vaccines ( 1 - Tdap) 1981 Cervical Cancer Screening Pa p with HPV Testing (Age 30 to 64) Every 5 Years 01/15/1992 Cervical Cancer Screening with HPV 01/15/1992 Mammogram Screening 2002 Pneumococcal Vaccine: 50+ Ye ars (1 of 1 - PCV) 01/15/2012 Zoster Vaccines (1 of 2) 01/15/2012 COVID-19 Vaccine ( - 2024-2 6 season) 2025 Influenza Adult (#1) 2025 RSV Immunization or 60+ Years (1 - 1-dose 75+ series) 2037 Hepatitis A Vaccines Aged Out No long er eligible based on patient's age to complete this topic Meningococcal B Vaccine Aged Out No l onger eligible based on patient's age to complete this topic Meningococcal Vaccine Aged Out No rina arminda eligible based on patient's age to complete this topic RSV Immunizations Under 20 Months Aged Out No longer eligible based on patient's age to complete this topic Care Teams Clinical Science Consultant Relationship Specialty Start Date End Date None, Provider, PCP - General 09/19/20
--- OUTSIDE RECORDS SUMMARY | 2025-10-29 12:56 | XMS_ITS | Clinical Summary ---
Author Organization [facility] Address [address] [place] [id number] Care Team Providers Care Manager Of Photography Name Role Phone Whit Reagan NP Primary Care Provider [phone] Allergies No known active allergies Medications naproxen (NAPROSYN,ALEVE ) 500 mg tablet take 1 tablet by oral route 2 times every day with food as needed 0 0 7 Active Additional Information Patient taking differently:500 mgoral 2 times daily PRN, pain, Reported on 12/31/2021 meloxicam (MOBIC) 7.5 mg tablet take 1 tablet by oral route every day as needed 0 0 7 Active Additional Information Patient taking differently:7.5 mgoral Daily PRN, pain, Reported on 12/31/2021 sertraline (ZOLOFT) 50 mg tablet take 1 Tablet by oral route every day 0 0 7 Active Additional Information Patient taking differently:50 mgoral Daily before breakfast, Indications: Anxiety with Depression, Reported on 12/31/2021 ergocalciferol (VITAMIN D2) 50,000 unit capsule take 1 capsule by oral route every other week 0 0 7 Active Additional Information Patient taking differently: oral Every 14 days, Indications: Vitamin D Deficiency, Reported on 12/31/2021 Synthroid 88 mcg tabletIndicatio ns:hypothyroidi sm Take 88 mcg by mouth 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 regrooving machine operator before breakfast 1 Active HYDROcodone-evelyn taminophen (NORCO) 5-325 mg per tabletIndicatio ns:Pain Take 1 tablet by mouth every 4 (four) hours as needed for pain for up to 8 doses 8 tablet 2 Active Active Problems Problem Noted Date Diagnosed Date Right carpal tunnel syndrome 12/08/2021 Overview (12/08/2021): Added automatically from request for surgery [id number] Chest pain 11/04/2016 Overview (02/05/2017): Chest pain in adult Family history of coronary artery disease 2016 Overview (02/05/2017): Family history of coronary artery disease occurring prior to 55 years of age Thumb pain 08/05/2015 Pain in wrist 08/05/2015 Arthropathy of hand 07/31/2015 Immunizations Immunization Administration Dates Next Due Influenza, Quadrivalent, Split, Intramuscular Influenza, Quadrivalent, Spl it, Preservative Free, Intramuscular 08/28/2019,09/12/2018 Surgical History Surgery Date Site/Laterality Comments TOTAL ABDOMINAL HYSTERECTOMY 11/01/2005 - 10/31/2006 Hysterectomy, total KNEE ARTHROSCOPY Left Medical History Medical History Date Comments History of laser assisted in situ keratomileusis History of LASIK - laser ass isted in situ keratomi Superficial basal cell carcinoma Cancer, basal Cell Arthritis Arthritis Depression Depression Anxiety disorder Anxiety Thyroid disease hypothyroidism PONV (postoperative nausea and vomiting) Motion sickness Osteopenia Family History Medical History Relation Name Comments Heart attack Brother 1 Myocardial infa rction; Hypertension Brother 2 Hypertension; Diabetes Father Diabetes mellit us; Hypertension Father Hypertension; Stroke Father Stroke; Arthritis Mother Arthritis; Hyperlipidemia Mother Hyperlipidemi a; Other Mother Grave's Disease ; Relation Name Status Comments Brother 1 Brother 2 Father Mother Social History Tobacco Use Types Packs/Day Years Used Date Smoking Tobacco: Never Smokeless Tobacco: Never Alcohol Use Standard Drinks/Week Comments No 0 (1 standard drink = 0.6 oz pur e alcohol) AUDIT-C Answer Date Recorded Q1: How often do you have a drink containing alc ohol? Never 12/31/2021 Average Number of Drinks Not on file 022 Q3: How often do you have si x or more drinks on one occasion? 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 Gender Identity Not on file Sexual Orientation Not on file Occupation Industry Job Start Date Job End Date EMPLOYED Not on file Not on file Not on file Last Filed Vital Signs Vital Sign Reading Time Taken Comments Blood Pressure 151/83 01/08/2022 8:20 AM ROTARY DRYER OPERATOR Pulse 68 01/08/2022 8:20 AM ROTARY DRYER OPERATOR Temperature 36.4 C (97.5 F) 01/08/2022 7:39 AM ROTARY DRYER OPERATOR Respiratory Rate 9 01/08/2022 8:20 AM ROTARY DRYER OPERATOR Oxygen Saturation 95% 01/08/2022 8:20 AM ROTARY DRYER OPERATOR Inhaled Oxygen Concentration - - Weight 58.4 kg (128 lb 12.8 oz) 01/08/2022 5:42 AM ROTARY DRYER OPERATOR Height 152.4 cm (5') 01/08/2022 5:42 AM ROTARY DRYER OPERATOR Body Mass Index 25.15 01/08/2022 5:42 AM ROTARY DRYER OPERATOR Plan of Treatment Health Maintenance Due Date Last Done Comments Breast Cancer Screening-Mammogram 1962 Colon Cancer Screening-Colonoscopy 1962 Depression Screening 1962 Hepatitis C Screening 1962 DTaP/Tdap/Td Vaccine (1 - Tdap) 1973 Hepatitis B Screening 01/15/1980 Regular Well Visit/Exam 18-64 01/15/1980 Covid-19 Vaccine (2024- season) 2025 10/06/2021, 02/16/2021, 01/24/2021 Influenza Vaccine (#1) 2025 , 09/13/2023, 09/11/2022, Additional history exists Zoster Vaccine Completed 11/12/2022, 09/11/2022 Pneumococcal vaccine <65 Aged Out No longer eligible based on patient's age to complete this topic Insurance [facility] Member Subscriber Plan / Payer ([facility] 11/01/2024-) Name:Natasha Uribe Relation to Subscriber:Self Name:Natasha Uribe Payer ID:[id number] (NAIC) Group ID:Not on file Type: Address: [id number] [place] [address] [id number] [place] [address] Member Subscriber Plan / Payer ([facility] 07/24/2019-Present) Name:Natasha Uribe Relation to Subscriber:Self Name:Natasha Uribe Payer ID:[id number] (NAIC) Group ID:Not on file Type: Address: [id number] [place] [phone] [address] [place] [address] [facility] Member Subscriber Plan / Payer ([facility] 11/01/2024-) Name:Natasha Uribe Relation to Subscriber:Self Name:Natasha Uribe Payer ID:[id number] (NAIC) Group ID:Not on file Type: Address: [address] [place] [address] [address] [facility] [place] [address] [facility] Care Teams Manager Of Photography Relationship Specialty Start Date End Date Whit Reagan NP PCP - General Family Medicine 11/06/21
== END 2025-10-29 12:48 | disposition home or self-care (01) ==
LOC: ANHAUDASC 12:48
PROVIDERS: PCP Nurse Practitioner Family; Visit Provider Otolaryngology
DX: J32.9 Chronic sinusitis, unspecified (principal); H90.41 Sensorineural hearing loss, unilateral, right ear, with unrestricted hearing on the contralateral side; H90.72 Mixed conductive and sensorineural hearing loss, unilateral, left ear, with unrestricted hearing on the contralateral side
CPT/HCPCS: 92557